=== PATIENT | female | born 1960 | race Caucasian/White ===

== ENCOUNTER 2020-12-04 11:17 | Inpatient (IN) ==
[2020-12-04] MEDS ORDERED: VANCOMYCIN INJ 1,000 MG in SODIUM CHLORIDE 0.9% 250 ML IV STA (12:47)
[2020-12-04 12:52] LABS: Basophils % 0.2 % (0.0-0.8); Eosinophils # 0.4 10*3/uL (0.0-0.87); Hematocrit 41.3 VOL% (35.7-47.0); Hemoglobin 14.1 GM/DL (12.0-16.0); Immature Granulocytes % 0.4 %; Immature Granulocytes Absolute 0.05 #; Lymphocytes % 24.2 % (21.3-54.2); Mean Corpuscular HGB Conc 34.1 GM/DL (32-36); Mean Corpuscular Volume 90.8 FL (87-102); Mean Platelet Volume 9.8 FL (9.6-12.0); Monocytes % 5.1 % (1.7-12.7); Neutrophils % 67.1 % (38.7-73.9); Platelet Count 253 T/CUMM (130-400); Red Blood Count 4.55 MC/CUMM (3.8-5.5); Red Cell Distribution Width 12.9 % (9.3-17.3); White Blood Count 12.5 T/CUMM (4-12)
[2020-12-04 13:22] LABS: Albumin 3.9 G/DL (3.4-5.0); Calcium 9.2 MG/DL (8.5-10.1); Osmolality,Calculated 282.3 MOS/KG (273-304); Potassium 3.3 MMOL/L (3.5-5.1); Total Protein 7.6 G/DL (6.4-8.2)
[2020-12-04] MEDS ORDERED: ALBUTEROL/IPRATROPIUM 3 ML NEB RESP TX PRN (14:21)
[2020-12-04] MEDS ORDERED: HYDROmorphone 2 MG/1 ML VIAL IV PRN (14:21)
[2020-12-04] MEDS ORDERED: BISACODYL 5 MG TABLET PO PRN (14:21)
[2020-12-04] MEDS ORDERED: ACETAMINOPHEN 325 MG TABLET PO PRN (14:21)
[2020-12-04] MEDS ORDERED: ONDANSETRON 4 MG/2 ML VIAL IV PRN (14:21)
[2020-12-04] MEDS ORDERED: KETOROLAC 30 MG/1 ML VIAL IV PRN (14:27)
[2020-12-04] MEDS ORDERED: VANCOMYCIN INJ 1,500 MG in SODIUM CHLORIDE 0.9% 500 ML IV SCH (14:30)
[2020-12-04] MEDS ORDERED: POTASSIUM CHLORIDE 20 MEQ TABLET PO STA (14:39)
[2020-12-04] MEDS: LACTATED RINGERS 1,000 ML IV SCH (16:26)
[2020-12-04] MEDS: LORazepam 1 MG TABLET PO PRN (21:53)
[2020-12-04] MEDS: NICOTINE 21 MG/24 HR PATCH TRANSDERM SCH (21:54)
[2020-12-05] MEDS: KETOROLAC 30 MG/1 ML VIAL IV SCH ×6 (01:09→21:16)
[2020-12-05] MEDS: MUPIROCIN 2% OINT 22 GM TUBE TOP SCH ×4 (01:09→21:20)
[2020-12-05] MEDS: CLINDAMYCIN INJ 300 MG/50 ML PREMIX IV SCH ×5 (01:10→21:14)
[2020-12-05] MEDS: LACTATED RINGERS 1,000 ML IV SCH ×4 (01:16→15:57)
[2020-12-05 06:09] LABS: Basophils % 0.2 % (0.0-0.8); Eosinophils # 0.3 10*3/uL (0.0-0.87); Eosinophils % 3.8 % (0.00-10.9); Hematocrit 38.2 VOL% (35.7-47.0); Hemoglobin 12.4 GM/DL (12.0-16.0); Immature Granulocytes % 0.5 %; Immature Granulocytes Absolute 0.04 #; Lymphocytes # 2.9 10*3/uL (1.4-4.0); Lymphocytes % 33.2 % (21.3-54.2); Mean Corpuscular HGB Conc 32.5 GM/DL (32-36); Mean Corpuscular Volume 93.4 FL (87-102); Mean Platelet Volume 9.8 FL (9.6-12.0); Monocytes % 5.9 % (1.7-12.7); Neutrophils % 56.4 % (38.7-73.9); Platelet Count 222 T/CUMM (130-400); Red Blood Count 4.09 MC/CUMM (3.8-5.5); Red Cell Distribution Width 12.9 % (9.3-17.3); White Blood Count 8.7 T/CUMM (4-12)
[2020-12-05 06:21] LABS: Calcium 8.6 MG/DL (8.5-10.1); Osmolality,Calculated 279.4 MOS/KG (273-304); Potassium 3.9 MMOL/L (3.5-5.1)
[2020-12-05 06:29] LABS: Hypochromasia Slight; Microcytosis Slight; Platelet Estimate Adequate
[2020-12-05] MEDS: NICOTINE 21 MG/24 HR PATCH TRANSDERM SCH (09:01)
[2020-12-05] MEDS: PANTOPRAZOLE 40 MG TABLET PO SCH (10:02)
[2020-12-05] MEDS: LORazepam 1 MG TABLET PO PRN (21:13)
[2020-12-06] MEDS: LACTATED RINGERS 1,000 ML IV SCH ×2 (03:36→09:03)
[2020-12-06] MEDS: KETOROLAC 30 MG/1 ML VIAL IV SCH ×2 (03:36→09:05)
[2020-12-06] MEDS: CLINDAMYCIN INJ 300 MG/50 ML PREMIX IV SCH ×2 (04:24→09:06)
[2020-12-06] MEDS: NICOTINE 21 MG/24 HR PATCH TRANSDERM SCH (09:05)
[2020-12-06] MEDS: MUPIROCIN 2% OINT 22 GM TUBE TOP SCH (09:05)
[2020-12-06] MEDS: PANTOPRAZOLE 40 MG TABLET PO SCH (09:05)
[2020-12-06 12:29] VITALS: BP 141/62
== END 2020-12-06 13:12 | disposition home or self-care (01) | DRG 603 ==
LOC: N.ED 11:17 → N.EDINP 14:21 → N.3E 19:47
PROVIDERS: ADMIT Surgery; ATTEND Surgery